=== PATIENT | male | born 1990 | race Caucasian/White ===

== ENCOUNTER 2018-02-15 12:18 | Emergency (ER) | payer OTHER ==
[2018-02-15 12:32] VITALS: BP 141/78; PULSE 74; TEMP 97.9; BMI 28.7
--- NOTE | 2018-02-15 13:18 | PDOC ---
History of Present Illness - General History Source: Patient - History of Present Illness Initial Comments: 02/15/18 13:17 28M w/ no significant pmhx presents with 2 day history of anal itching with perianal pain that started yesterday. Pt states he tried using Preparation H, but with minimal relief. Pt admits to having difficulty staying seated for more than 2 hours as it exacerbates the perianal pain. Prior to his arrival, he was at work (pt is a military police officer) and could not sit at his desk for very long due to the anal pain which prompted him to come to the ED. Pt denies hx of hemorrhoids or STDs. Pt has also noticed he has been having diarrhea more frequently over the past couple of months. Reports seeing blood in his stool and 1.5 months ago. Also reports black having black stool , but only after drinking Guinness beers. Denies f/c, dangelo/d, chest pain, abd pain, urinary symptoms, problems walking. Denies hx of cardiac/lung disease. Admits to mild sob when anal pain is exacerbated. Of note, pt was given recommendation by his PCP to get a colonoscopy given family hx, however he has not yet gotten one. Last visit with PCP was 2 weeks ago. PCP: Unknown, but part of [facility]. PMHx: Denies PSHx: R knee surgery x2 FHx: Father was diagnosed with colon cancer at age 34, underwent radiation and chemotherapy, now age 55. Had a colectomy this past summer, now with colostomy bag. Social: Admits to smoking 1 pack of cigarettes/weekend, drinks 5-6 pints of Guiness/weekend, denies rec drug use Sexual Hx: Pt does have sex with females, does not always use protection. Denies hx of 02/15/18 13:35 <Claudia Chambers - Last Filed: 02/15/18 17:19> <Tegan Munoz - Last Filed: 02/16/18 16:08> - General Chief Complaint: Pain, Acute Stated Complaint: ABD PAIN Time Seen by Provider: 02/15/18 12:38 Past History - Past Medical History COPD: No - Suicide/Smoking/Psychosocial Hx Smoking History: Current every day smoker Information on smoking cessation initiated: No <Claudia Chambers - Last Filed: 02/15/18 17:19> <Tegan Munoz - Last Filed: 02/16/18 16:08> - Past Medical History Allergies/Adverse Reactions: Allergies Allergy/AdvReac Type Severity Reaction Status Date / Time No Known Allergies Allergy Verified 02/15/18 12:24 Home Medications: Ambulatory Orders Lidocaine 5% Top. Ointment [Xylocaine 5% Top. Ointment -] 1 applic TP DAILY #1 tube 02/15/18 Review of Systems - Review of Systems Able to Perform ROS?: Yes Is the patient limited Mosotho proficient: No Constitutional: No: Chills, Fever, Weakness HEENTM: No: Recent change in vision Respiratory: Yes: Shortness of Breath Cardiac (ROS): No: Chest Pain ABD/GI: Yes: See HPI, Diarrhea, Nausea. No: Poor Appetite, Vomiting, Abdominal cramping : Yes: See HPI Neurological: No: Headache, Numbness, Paresthesia <Claudia Chambers - Last Filed: 02/15/18 17:19> *Physical Exam - Vital Signs Last Vital Signs Temp Pulse Resp BP Pulse Ox 97.9 F 74 18 141/78 99 02/15/18 12:25 02/15/18 12:25 02/15/18 12:25 02/15/18 12:25 02/15/18 12:25 - Physical Exam General Appearance: Yes: Appropriately Dressed HEENT: positive: EOMI, JAMES, Normal Voice Neck: positive: Supple Respiratory/Chest: positive: Lungs Clear, Normal Breath Sounds Cardiovascular: positive: Regular Rhythm, Regular Rate, S1, S2. negative: Murmur Vascular Pulses: Dorsalis-Pedis (R): 2+, Doralis-Pedis (L): 2+ Gastrointestinal/Abdominal: positive: Normal Bowel Sounds, Soft Rectal Exam: positive: normal exam, normal rectal tone. negative: hemorrhoids Musculoskeletal: negative: CVA Tenderness Extremity: positive: Normal Inspection, Normal Range of Motion Integumentary: positive: Normal Color, Dry, Warm Neurologic: positive: plaster applicator II-XII NML intact, Fully Oriented, Alert, Motor Strength 5/5 <Gonzalez Chambersystal - Last Filed: 02/15/18 17:19> - Vital Signs Last Vital Signs Temp Pulse Resp BP Pulse Ox 97.9 F 74 18 141/78 99 02/15/18 12:25 02/15/18 12:25 02/15/18 12:25 02/15/18 12:25 02/15/18 12:25 <Tegan Munoz - Last Filed: 02/16/18 16:08> ED Treatment Course - LABORATORY CBC & Chemistry Diagram: 02/15/18 13:50 02/15/18 13:50 <Claudia Chambers - Last Filed: 02/15/18 17:19> - LABORATORY CBC & Chemistry Diagram: 02/15/18 13:50 02/15/18 13:50 - ADDITIONAL ORDERS Additional order review: 02/15/18 13:50 RBC 4.69 MCV 89.5 MCHC 35.0 RDW 12.8 MPV 8.9 Neutrophils % 73.8 D Lymphocytes % 17.2 D Monocytes % 7.7 Eosinophils % 0.7 Basophils % 0.6 - Medications Given in the ED: ED Medications Discontinued Medications Generic Name Dose Route Start Last Admin Trade Name Melanie PRN Reason Stop Dose Admin Acetaminophen 650 mg 02/15/18 13:44 02/15/18 14:01 Tylenol - PO 02/15/18 13:45 650 mg ONCE ONE Administration <Tegan Munoz - Last Filed: 02/16/18 16:08> Medical Decision Making - Medical Decision Making 02/15/18 14:00 28M w/ no significant pmhx presents with 2 day hx of perianal itching and 1 day hx of perianal pain. -Will get CBC/CMP, lipase, U/A, urine cx -On rectal exam, no hemorrhoids noted. FOBT done. Mild rash around perianal region. Will obtain Pelvic CT w/ contrast to r/o intra-pelvic pathology. -Pt given Tylenol for pain. 02/15/18 14:13 -CBC/CMP unremarkable. FOBT neg. -Await results for Pelvis CT 02/15/18 15:27 -CT pelvis neg -DC to home with recommendation use topical lidocaine to apply perianal region <Claudia Chambers - Last Filed: 02/15/18 17:19> *DC/Admit/Observation/Transfer - Discharge Dispostion Decision to Admit order: No <Claudia Chambers - Last Filed: 02/15/18 17:19> <Tegan Munoz - Last Filed: 02/16/18 16:08> Diagnosis at time of Disposition: Anal pain - Discharge Dispostion Disposition: HOME Condition at time of disposition: Good - Prescriptions Prescriptions: Lidocaine 5% Top. Ointment [Xylocaine 5% Top. Ointment -] 1 applic TP DAILY #1 tube - Patient Instructions Additional Instructions: You were seen in the ED for complaints of anal pain. In the ED, a pelvic CT was done that did not show any acute pathology at this time. Your blood work was also normal. You were given Tylenol for you pain. There is no acute need for hospitalization at this time. You are being discharged home. You have been given the following prescription: Please apply Lidocaine topical ointment to your anal area for pain. Consult Recommendations: Please follow up with your primary care physician within 1 week for your symptoms. Additional Recommendations: Please eat a high fiber diet. Try to avoid straining. If you experience worsening anal pain, abdominal pain, blood in your urine or stool, or any associated symptoms, please proceed to your nearest emergency room immediately. - Post Discharge Activity Forms/Work/School Notes: Back to Work
[2018-02-15] MEDS ORDERED: ACETAMINOPHEN 325 MG TABLET (FP) PO ONE (13:44)
[2018-02-15] MEDS ORDERED: ACETAMINOPHEN 325 MG TABLET (FP) ONE (13:59)
[2018-02-15 14:08] LABS: BASO % 0.6 % (0-2.0); EOS % 0.7 % (0-4.5); HEMOGLOBIN 14.7 GM/dL (11.7-16.9); LYMPH % 17.2 % (8-40); MCH 31.3 pg (25.7-33.7); MEAN CELL VOLUME 89.5 fl (80-96); MEAN PLT VOLUME 8.9 fl (7.5-11.1); MONO % 7.7 % (3.8-10.2); NEUT % 73.8 % (42.8-82.8); PLATELET COUNT 205 K/MM3 (134-434); RBC 4.69 M/mm3 (4.00-5.60); RDW 12.8 % (11.9-15.9); WHITE BLOOD COUNT 8.5 K/mm3 (4.0-10.0)
--- NOTE | 2018-02-15 14:34 | PDOC ---
Attending Attestation - Resident Resident Name: Claudia Chambers - ED Attending Attestation I have performed the following: I have examined & evaluated the patient, The case was reviewed & discussed with the resident, I agree w/resident's findings & plan - HPI HPI: 02/15/18 15:28 Michael 28 YOM with h/o perianal pain and itching x 2 days, Works as security police officer, cannot sit for long period. No meds taken. FHx colon ca. No f/c, dangelo, dizziness. Sexually active, does not use protection, with females. +nonbloody diarrhea x several months. Has had h/o blood per rectum and bloating x several months. + smoking history. Denies anal intercourse. - Physicial Exam PE: 02/15/18 15:29 NAD, well appearing, PERRL, EOMI, MMM, nl conjunctiva, anicteric; neck supple. lungs clear, RRR, abdomen soft nontender. normal external genitalia. rectal vault normal, +sphincter tone. no gross bleeding on rectal. perianal erythema and skin irritation, no fissures. LOYD x4, . No peripheral edema. normal color for ethnicity, WW. - Medical Decision Making 02/15/18 15:28 28 YOM witih rectal pain/pruritis. Vital signs reviewed, wnl. Labs and lytes normal reassuring, stool guaiac negative. ED course: no acute events, remained stable and well appearing. Clinically improved after interventions, including analgesia, IVF. CT pelvis to r/o abscess; negative CT, unremarkable. no perirectal abscess. remains well and comfortable. no abx indicated, local care of perianal itch/area of irritation Dispo: DC in stable condition, supportive measures, topical lidocaine for anal irritation. GI followup outpatient. return precautions discussed. stool softner and diet modifications. 02/15/18 16:36 02/16/18 16:06
[2018-02-15 14:38] LABS: ALBUMIN 4.1 g/dl (3.4-5.0); ALK PHOS 66 U/L (45-117); ANION GAP 7 MMOL/L (8-16); BILIRUBIN,TOTAL 0.2 mg/dL (0.2-1); BLOOD UREA NITROGEN 16 mg/dL (7-18); CALCIUM 9.3 mg/dL (8.5-10.1); CHLORIDE 102 mmol/L (98-107); CO2 29 mmol/L (21-32); CREATININE 1.1 mg/dL (0.55-1.3); GLUCOSE,RANDOM 95 mg/dL (74-106); LIPASE 137 U/L (73-393); POTASSIUM 4.2 mmol/L (3.5-5.1); SGOT/AST 25 U/L (15-37); SGPT/ALT 42 U/L (13-61); SODIUM 138 mmol/L (136-145); TOT PROT 7.8 g/dl (6.4-8.2)
== END 2018-02-15 17:26 | disposition home or self-care (01) ==
LOC: JER 12:18
DX: K62.89 Other specified diseases of anus and rectum (principal)
CPT/HCPCS: 36415; 72193-TC; 80053; 82272; 83690; 85025; 99283-25

== ENCOUNTER 2018-02-22 02:42 | Emergency (ER) | payer OTHER ==
[2018-02-22 03:26] VITALS: BP 134/84; PULSE 92; TEMP 99.6; BMI 28.7
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
== END 2018-02-22 04:00 | disposition home or self-care (01) ==
LOC: JER 02:42
DX: Z77.21 Contact with and (suspected) exposure to potentially hazardous body fluids (principal); Y35.811A Legal intervention involving manhandling, law enforcement official injured, initial encounter; Y93.89 Activity, other specified; Y92.89 Other specified places as the place of occurrence of the external cause; Y99.0 Civilian activity done for income or pay
CPT/HCPCS: 99281-25

== ENCOUNTER 2018-09-15 20:39 | Emergency (ER) | payer OTHER | END 2018-09-15 21:29 | disposition home or self-care (01) | LOC: JERFT 20:39 ==

== ENCOUNTER 2018-11-22 00:16 | Emergency (ER) | payer OTHER | END 2018-11-22 00:54 | disposition home or self-care (01) | LOC: JER 00:16 ==

== ENCOUNTER 2020-06-18 17:30 | Emergency (ER) | payer OTHER ==
[2020-06-18 17:35] VITALS: BP 153/85; PULSE 81; TEMP 98.6; BMI 28.7
== END 2020-06-18 18:15 | disposition home or self-care (01) ==
LOC: FER 17:30
DX: H93.13 Tinnitus, bilateral (principal); M54.5 Low back pain; S80.211A Abrasion, right knee, initial encounter; S80.212A Abrasion, left knee, initial encounter
CPT/HCPCS: 99282-25

== ENCOUNTER 2020-08-04 18:11 | Emergency (ER) | payer OTHER ==
[2020-08-04 18:17] VITALS: BP 130/75; PULSE 74; TEMP 99; BMI 26.9
== END 2020-08-04 18:47 | disposition home or self-care (01) ==
LOC: FER 18:11
DX: M25.512 Pain in left shoulder (principal)
CPT/HCPCS: 99281-25

== ENCOUNTER 2021-02-25 19:58 | Emergency (ER) | payer OTHER ==
[2021-02-25 20:04] VITALS: BMI 26.9
[2021-02-25 20:24] VITALS: BP 138/68; PULSE 80; TEMP 99.3
== END 2021-02-25 20:47 | disposition home or self-care (01) ==
LOC: SUPCPDRO 19:58 → FER 19:58
DX: S80.12XA Contusion of left lower leg, initial encounter (principal); S29.012A Strain of muscle and tendon of back wall of thorax, initial encounter; S66.911A Strain of unspecified muscle, fascia and tendon at wrist and hand level, right hand, initial encounter; Y35.811A Legal intervention involving manhandling, law enforcement official injured, initial encounter
CPT/HCPCS: 99281-25

== ENCOUNTER 2021-10-18 12:08 | Emergency (ER) | payer OTHER ==
[2021-10-18 12:26] VITALS: BP 124/76; PULSE 72; TEMP 97; BMI 29.4
== END 2021-10-18 12:37 | disposition home or self-care (01) ==
LOC: FER 12:08
DX: Z77.21 Contact with and (suspected) exposure to potentially hazardous body fluids (principal)
CPT/HCPCS: 99282-25

== ENCOUNTER 2022-07-13 14:55 | Emergency (ER) | payer OTHER ==
[2022-07-13 15:07] VITALS: BP 140/76; PULSE 67; RESP 18; TEMP 98; BMI 30.1
== END 2022-07-13 15:25 | disposition home or self-care (01) ==
LOC: FER 14:55
DX: S83.91XA Sprain of unspecified site of right knee, initial encounter (principal); X50.9XXA Other and unspecified overexertion or strenuous movements or postures, initial encounter
CPT/HCPCS: 99282-25

== ENCOUNTER 2022-07-22 15:31 | Emergency (ER) | payer OTHER ==
[2022-07-22 16:21] VITALS: BP 129/100; PULSE 96; RESP 20; TEMP 98.3; BMI 30.1
== END 2022-07-22 17:33 | disposition home or self-care (01) ==
LOC: FER 15:31
DX: S50.811A Abrasion of right forearm, initial encounter (principal); X58.XXXA Exposure to other specified factors, initial encounter; Y93.89 Activity, other specified; Y99.0 Civilian activity done for income or pay
CPT/HCPCS: 99282-25

== ENCOUNTER 2023-07-13 23:58 | Emergency (ER) | payer OTHER ==
[2023-07-14 00:19] VITALS: RESP 18; BMI 30.1
[2023-07-14] MEDS ORDERED: ACETAMINOPHEN 500 MG TABLET (FP) ONE (00:30)
[2023-07-14] MEDS: ACETAMINOPHEN 500 MG TABLET (FP) PO ONE (00:30)
[2023-07-14 00:32] VITALS: BP 147/96; PULSE 94; TEMP 98.6
== END 2023-07-14 00:46 | disposition home or self-care (01) ==
LOC: FER 23:58
DX: S46.911A Strain of unspecified muscle, fascia and tendon at shoulder and upper arm level, right arm, initial encounter (principal); S83.421A Sprain of lateral collateral ligament of right knee, initial encounter; M25.511 Pain in right shoulder; M25.561 Pain in right knee; X58.XXXA Exposure to other specified factors, initial encounter
CPT/HCPCS: 99283-25

== ENCOUNTER 2023-08-25 21:00 | Emergency (ER) | payer OTHER, BC ==
[2023-08-25 21:13] VITALS: BP 138/95; PULSE 80; RESP 16; TEMP 98.1; BMI 29.9
== END 2023-08-25 21:17 | disposition home or self-care (01) ==
LOC: FER 21:00
DX: S00.33XA Contusion of nose, initial encounter (principal); R09.81 Nasal congestion; W22.8XXA Striking against or struck by other objects, initial encounter
CPT/HCPCS: 99281-25

== ENCOUNTER 2023-12-08 16:47 | Emergency (ER) | payer BC, OTHER ==
[2023-12-08 17:18] VITALS: BP 125/85; PULSE 73; RESP 18; TEMP 97.9; BMI 31.5
[2023-12-08] MEDS ORDERED: METHOCARBAMOL 500 MG TABLET ONE (17:20)
[2023-12-08] MEDS: METHOCARBAMOL 500 MG TABLET PO ONE (17:21)
== END 2023-12-08 17:35 | disposition home or self-care (01) ==
LOC: FER 16:47
DX: S39.011A Strain of muscle, fascia and tendon of abdomen, initial encounter (principal); R10.31 Right lower quadrant pain; X58.XXXA Exposure to other specified factors, initial encounter
CPT/HCPCS: 99283-25

== ENCOUNTER 2024-10-12 03:18 | Emergency (ER) | payer OTHER, BC ==
[2024-10-12 03:29] VITALS: BP 132/88; PULSE 68; RESP 18; TEMP 98; BMI 33.0
[2024-10-12] MEDS ORDERED: LIDOCAINE 5% TOPICAL PATCH TP ONE (04:27)
[2024-10-12] MEDS ORDERED: ACETAMINOPHEN 325 MG TABLET (FP) PO ONE (04:27)
[2024-10-12] MEDS ORDERED: LIDOCAINE 4% PATCH TP ONE (04:30)
[2024-10-12] MEDS ORDERED: LIDOCAINE PATCH REMOVAL MC SCH (22:00)
== END 2024-10-12 05:10 | disposition home or self-care (01) ==
LOC: JER 03:18
DX: M25.561 Pain in right knee (principal); W50.0XXA Accidental hit or strike by another person, initial encounter; Y99.0 Civilian activity done for income or pay
CPT/HCPCS: 99283-25